=== PATIENT | female | born 1935 | race Caucasian/White ===

== ENCOUNTER 2023-06-17 14:39 | Outpatient (CLI) | payer MEDICARE, BC | END 2023-06-17 14:40 | disposition home or self-care (01) | LOC: CSHMAMMO 14:39 | PROVIDERS: ATTEND Internal Medicine | DX: M85.89 Other specified disorders of bone density and structure, multiple sites (principal); M81.0 Age-related osteoporosis without current pathological fracture | CPT/HCPCS: 77080 ==